=== PATIENT | male | born 1935 | race Caucasian/White ===

== ENCOUNTER 2023-02-05 09:11 | Day surgery (SDC) | payer MEDICARE, BC ==
[2023-02-05] MEDS: Lactated Ringers 1,000 ML IV SCH (09:33)
[2023-02-05] MEDS ORDERED: ceFAZolin 1 GM Vial ONE (10:12)
[2023-02-05] MEDS ORDERED: fentaNYL 100 MCG/2 ML SDV ONE (10:13)
[2023-02-05] MEDS ORDERED: Bupivacaine 0.5% 30 ML SDV ONE (10:13)
[2023-02-05] MEDS ORDERED: Propofol 200 MG/20 ML SDV ONE (10:13)
[2023-02-05] MEDS ORDERED: Midazolam 1 MG/ML 2 ML SDV ONE (10:13)
[2023-02-05] MEDS ORDERED: Morphine 2 MG/ML SYRINGE IV PRN (12:28)
[2023-02-05] MEDS: Acetaminophen/oxyCODONE 325-5 MG Tab PO PRN (14:31)
[2023-02-05 15:06] VITALS: BP 160/67; PULSE 49
== END 2023-02-05 15:45 | disposition home or self-care (01) ==
LOC: VM.SDS 09:11
PROVIDERS: ATTEND Surgery
DX: K40.90 Unilateral inguinal hernia, without obstruction or gangrene, not specified as recurrent (principal); I10 Essential (primary) hypertension; E78.5 Hyperlipidemia, unspecified; L72.3 Sebaceous cyst; Z79.899 Other long term (current) drug therapy; F17.210 Nicotine dependence, cigarettes, uncomplicated
CPT/HCPCS: 00830; A9270-GY; C1781; J0665; J0690; J2250; J2704; J3010; J7120